=== PATIENT | female | born 1960 | race Caucasian/White ===

== ENCOUNTER 2024-09-10 10:44 | Outpatient (RCR) | payer OTHER, SELFPAY ==
[2024-09-10 11:06] VITALS: BP 136/64; PULSE 69; TEMP 36.2; O2SAT 98
[2024-09-10 11:17] LABS: Anion Gap 13.9; BUN Creatinine Ratio 31.1; Calcium 9.2 mg/dL (8.5-10.1); Carbon Dioxide 29.2 mmol/L (21.0-32.0); Chloride 104 mmol/L (98-107); Estimated GFR (African America >60 (>=60 mL/min/1.73m^2); Estimated GFR (Non-African Ame >60 (>=60 mL/min/1.73m^2); Glucose 94 mg/dL (74-106); Potassium 4.1 mmol/L (3.5-5.1); Sodium 143 mmol/L (136-145)
[2024-09-10] MEDS: ZOLEDRONIC ACID/MANNITOL-WATER 5 MG/100 ML BOTTLE 400 MG IV (11:31)
== END 2024-09-14 07:53 | disposition home or self-care (01) ==
LOC: LAB 10:44
PROVIDERS: PCP Internal Medicine; Visit Provider Internal Medicine
DX: Z51.81 Encounter for therapeutic drug level monitoring (principal); M81.0 Age-related osteoporosis without current pathological fracture; M15.9 Polyosteoarthritis, unspecified; Z79.899 Other long term (current) drug therapy
CPT/HCPCS: 36415; 80048; 96365; J3489